=== PATIENT | male | born 1980 | race American Indian/Alaskan Native ===

== ENCOUNTER 2020-12-30 12:01 | Emergency (ER) | payer SELFPAY ==
[2020-12-30 12:12] VITALS: BP 126/75
--- NOTE | 2020-12-30 12:26 | Emergency Department Report ---
ED Upper Extremity Inj HPI - General Chief Complaint: Extremity Injury, Upper Stated Complaint: RT THUMB SWOLLEN Time Seen by Provider: 12/30/20 12:13 Source: patient Mode of arrival: Ambulatory Limitations: No Limitations - History of Present Illness Initial Comments: This is a 40-year-old male nontoxic, well nourished in appearance, no acute signs of distress presents to the ED with c/o of right thumb pain x1 day. Patient stated that he injured his finger after closing his car door which slammed his finger in between. Patient denies any other injuries or trauma. Patient denies any numbness, tingling, fever, chills, nausea, vomiting, chest pain, shortness of breath, headache, stiff neck. Patient denies any joint swelling or joint redness. Patient denies decreased range of motion. Patient denies any allergies or significant past medical history. MD Complaint: Injury to:: right, finger -: days(s) Other Extremity Injury: Fingers: Right (thumb) Other Injuries: none Severity scale (0 -10): 3 Improves With: immobilization Worsens With: other (palpation) Context: direct blow Associated Symptoms: denies other symptoms. denies: weakness, numbness, neck pain, suspects foreign body, nausea/vomiting, heard/felt popping sensat - Related Data Previous Rx's Medication Instructions Recorded Last Taken Type Naproxen 500 mg PO Q12H PRN #12 tablet 12/30/20 Unknown Rx Allergies Allergy/AdvReac Type Severity Reaction Status Date / Time No Known Allergies Allergy Unverified 12/30/20 12:10 ED Review of Systems ROS: Stated complaint: RT THUMB SWOLLEN Other details as noted in HPI Comment: All other systems reviewed and negative Constitutional: denies: chills, fever Eyes: denies: eye pain, eye discharge, vision change ENT: denies: ear pain, throat pain Respiratory: denies: cough, shortness of breath, wheezing Cardiovascular: denies: chest pain, palpitations Endocrine: no symptoms reported Gastrointestinal: denies: abdominal pain, nausea, diarrhea Genitourinary: denies: urgency, dysuria Musculoskeletal: denies: back pain, joint swelling, arthralgia Skin: denies: rash, lesions Neurological: denies: headache, weakness, paresthesias Psychiatric: denies: anxiety, depression Hematological/Lymphatic: denies: easy bleeding, easy bruising ED Past Medical Hx - Past Medical History Previous Medical History?: No - Surgical History Additional Surgical History: hernia - Social History Smoking Status: Never Smoker Substance Use Type: None - Medications Home Medications: Home Medications Medication Instructions Recorded Confirmed Last Taken Type Naproxen 500 mg PO Q12H PRN #12 tablet 12/30/20 Unknown Rx ED Physical Exam - General Limitations: No Limitations General appearance: alert, in no apparent distress - Head Head exam: Present: atraumatic, normocephalic - Eye Eye exam: Present: normal appearance - Neck Neck exam: Present: normal inspection, full ROM. Absent: lymphadenopathy - Respiratory Respiratory exam: Absent: respiratory distress - Cardiovascular Cardiovascular Exam: Present: regular rate - Extremities Exam Extremities exam: Present: normal inspection, full ROM, tenderness, normal capillary refill. Absent: joint swelling - Expanded Upper Extremity Exam Right General: Present: normal inspection Shoulder Exam: Present: normal inspection, full ROM. Absent: tenderness, swelling Upper Arm exam: Present: normal inspection, full ROM. Absent: tenderness, swelling Elbow exam: Present: normal inspection, full ROM. Absent: tenderness, swelling Forearm Wrist exam: Present: normal inspection, full ROM. Absent: tenderness, swelling Hand Wrist exam: Present: normal inspection, full ROM, tenderness, ecchymosis. Absent: swelling, abrasion, laceration, deformity, crepidus, dislocation, erythema, amputation, nail avulsion, subungual hematoma Vascular: Present: normal capillary refill. Absent: vascular compromise (Neurovascular within normal limits) - Back Exam Back exam: Present: full ROM - Neurological Exam Neurological exam: Present: alert, oriented X3, normal gait - Psychiatric Psychiatric exam: Present: normal affect, normal mood - Skin Skin exam: Present: warm, dry, intact, normal color. Absent: rash ED Course Vital Signs 12/30/20 12:05 Temperature 98.4 F Pulse Rate 80 Respiratory 18 Rate Blood Pressure 126/75 O2 Sat by Pulse 99 Oximetry - Reevaluation(s) Reevaluation #1: 12/30/20 12:26 Patient is speaking in full sentences with no signs of distress noted. ED Medical Decision Making - Radiology Data [facility] [address] [place] [address] XRay Report Signed Patient: ANNE MARIE DE ANDA MR#: [id number] : 1980 Acct:[id number] Age/Sex: 40 / M ADM Date: 12/30/20 Loc: ED Attending Dr: Ordering Physician: DANIKA GOODWIN NP Date of Service: 12/30/20 Procedure(s): XR finger(s) 2+V RT Accession Number(s): [id number] cc: DANIKA GOODWIN NP Fluoro Time In Minutes: XR finger(s) 2+V RT INDICATION / CLINICAL INFORMATION: right thumb pain. COMPARISON: None available. FINDINGS: BONES/JOINT(S): No acute fracture or subluxation. No significant degenerative changes. SOFT TISSUES: No significant abnormality. ADDITIONAL FINDINGS: None. Signer Name: Eleazar Guzman MD Signed: 12/30/2020 12:42 PM Workstation Name: [id number] Transcribed By: BI Dictated By: Eleazar Guzman MD Electronically Authenticated By: Eleazar Guzman MD Signed Date/Time: 12/30/20 124 DD/ 41 TD/TT: - Medical Decision Making This is a 40-year-old male that presents with right thumb contusion. Patient is stable and was examined by me. X-ray has been obtained and dictated by the radiologist. Patient is notified of the x-ray report with noted by the patient. Patient does have normal gait with no tenderness and no joint swelling. No ecchymosis. no joint redness or swelling. Not warm to touch. No signs of cellulites present. Patient was instructed to RICE therapy. Patient is discharged with Motrin. At time of discharge, the patient does not seem toxic or ill in appearance. No acute signs of distress noted. Patient agrees to discharge treatment plan of care. No further questions noted by the patient. Critical care attestation.: If time is entered above; I have spent that time in minutes in the direct care of this critically ill patient, excluding procedure time. ED Disposition Clinical Impression: Contusion of right thumb Qualifiers: Encounter type: sequela Damage to nail status: without damage Qualified Code(s): S60.011S - Contusion of right thumb without damage to nail, sequela Disposition: 01 HOME / SELF CARE / HOMELESS Is pt being admited?: No Does the pt Need Aspirin: No Condition: Stable Instructions: RICE Therapy for Routine Care of Injuries, [id number] Additional Instructions: Follow-up with a orthopedic doctor in 3-5 days or if symptoms worsen and continue return to emergency room as soon as possible. Prescriptions: Naproxen 500 mg PO Q12H PRN #12 tablet PRN Reason: Pain , Severe (7-10) Referrals: PRIMARY CARE, [Referring] - 3-5 Days MAYELIN BALDWIN MD [Staff Physician] - 3-5 Days Time of Disposition: 13:18
--- NOTE | 2020-12-30 12:47 | XRay Report ---
XR finger(s) 2+V RT INDICATION / CLINICAL INFORMATION: right thumb pain. COMPARISON: None available. FINDINGS: BONES/JOINT(S): No acute fracture or subluxation. No significant degenerative changes. SOFT TISSUES: No significant abnormality. ADDITIONAL FINDINGS: None. Signer Name: Eleazar Guzman MD Signed: 12/30/2020 12:42 PM Workstation Name: [id number]
== END 2020-12-30 15:04 | disposition home or self-care (01) ==
LOC: ED 12:01
DX: S60.011A Contusion of right thumb without damage to nail, initial encounter (principal); Z98.890 Other specified postprocedural states; V09.9XXA Pedestrian injured in unspecified transport accident, initial encounter; Y93.89 Activity, other specified; Y92.89 Other specified places as the place of occurrence of the external cause; Y99.8 Other external cause status
CPT/HCPCS: 99283